=== PATIENT | female | born 1975 | race Two or more races ===

== ENCOUNTER 2022-11-10 09:19 | Emergency (ER) | payer MEDICAID ==
[~2022-11-10] VITALS: Ht 157.5 cm; Wt 54.5 kg
[2022-11-10 09:47] LABS: BASOPHILS % 0.7 % (0.0-2.0); EOSINOPHILS % 3.7 % (0.0-5.0); HEMOGLOBIN. 14.4 g/dL (12.0-16.0); LYMPHOCYTES % 23.4 % (20.0-50.0); MEAN CORPUSCULAR HEMOGLOBIN 30.1 pg (28.0-32.0); MEAN PLATELET VOLUME 8.8 fl (7.4-10.4); MONOCYTES % 5.6 % (2.0-8.0); NEUTROPHILS % 66.6 % (40.0-76.0); PLATELET 310 x1000/uL (130-400); RED BLOOD CELL COUNT 4.78 mill/uL (4.2-5.4); RED CELL DISTRIBUTION WIDTH 13.1 % (11.6-14.6)
[2022-11-10 09:56] LABS: CHLORIDE 104 mEq/L (98-107)
[2022-11-10 09:57] LABS: HCG SCREEN NEGATIVE
[2022-11-10 10:00] LABS: PARTIAL THROMBOPLASTIN TIME 27.3 sec (23.4-31.0); PROTHROMBIN TIME 10.8 sec (9.6-11.0)
[2022-11-10 10:59] LABS: CLARITY URINE CLEAR (CLEAR); COLOR URINE YELLOW (YELLOW); KETONES URINE NEGATIVE (NEGATIVE); LEUKOCYTE ESTERASE URINE NEGATIVE (NEGATIVE); NITRITE URINE NEGATIVE (NEGATIVE); OCCULT BLOOD URINE NEGATIVE (NEGATIVE); PH URINE 7.5 (4.5-8.0); PROTEIN URINE NEGATIVE (NEGATIVE); SPECIFIC GRAVITY URINE 1.005 (1.005-1.030); UROBILINOGEN URINE 0.2 E.U./dL (0.2-1.0)
[2022-11-10] MEDS ORDERED: KETOROLAC 60MG/2ML VIAL IM NR (11:09)
[2022-11-10 12:07] VITALS: BP 112/80
[2022-11-10] MEDS ORDERED: ALBU6.7H3 INH (12:09)
[2022-11-10] MEDS ORDERED: NAPR-681 MT (12:09)
== END 2022-11-10 12:28 | disposition home or self-care (01) ==
LOC: ER 09:19
DX: R07.89 Other chest pain (principal); Z98.890 Other specified postprocedural states
CPT/HCPCS: 36415; 71045; 80053; 81003; 84484; 84703; 85025; 85610; 85730; 93005; 96372; 99285; J1885; Z7610